=== PATIENT | female | born 1985 | race Caucasian/White ===

== ENCOUNTER 2022-07-09 | Outpatient (REF) | payer OTHER, SELFPAY | END 2022-07-09 00:01 | LOC: HO.HOSX | PROVIDERS: Visit Provider Orthopaedic Surgery | DX: M23.92 Unspecified internal derangement of left knee (principal); Z98.890 Other specified postprocedural states | CPT/HCPCS: 73560; 73565; 99202 ==

== ENCOUNTER 2022-08-13 08:40 | Outpatient (REF) | payer OTHER, SELFPAY ==
--- NOTE | ~2022-08-13 | MR_ITS ---
EXAMINATION: MR KNEE WITHOUT CONTRAST, LEFT CLINICAL INFORMATION: Left knee. Popping, cracking, locking. Lateral pain occasionally. History of three ACL surgeries. COMPARISON: Radiographs dated 07/09/2022. TECHNIQUE: MRI of the knee without contrast was performed using routine sequences on a high-field scanner. FINDINGS: MENISCI: Medial Meniscus: Posterior horn and body are markedly diminutive, most consistent with chronic changes of prior partial meniscectomy. Remaining meniscal tissue at the body is medially extruded from the joint line. No new tears are identified. Lateral Meniscus: The meniscal body is partially extruded from the joint line. Significant intermediate intrasubstance signal intensity and fraying along the inner margin of the meniscal body may correspond to meniscal degeneration or chronic changes of a prior repair. The posterior horn is diminutive with a chronic tear of the posterior root at the tibial attachment and absence of meniscal tissue in this region. The posterior horn remains attached to the ligament of Blackwell. LIGAMENTS: Cruciate: The ACL graft is thinned with posteromedial bowing due to mass effect by the osteophytes along the medial margin of the lateral femoral condyle at the intercondylar notch, most consistent with graft impingement, partial tearing, and laxity. No significant cystic changes at the femoral and intercondylar notches. PCL is intact. Collateral: The MCL is thickened and irregular proximally with edema signal along the deep margin. LCL complex is normal. EXTENSOR MECHANISM: The medial margin of the proximal patellar tendon is thickened, likely the result of postoperative scarring. Adjacent scar tissue is present in Hoffa's fat pad. Quadriceps tendon is normal. ARTICULAR CARTILAGE/BONE: Patellofemoral Compartment: Minimal chondral thinning along the inferior margin of the medial patellar facet with small marginal osteophytes. There is significant articular cartilage loss at the medial margin of the medial trochlear facet with cortical irregularity full-thickness fissures, and marginal osteophytes. Normal trochlear morphology. Medial Compartment: Areas of partial-thickness cartilage loss are evident in the medial femoral condyle both at the anterior margin of the anterior weightbearing surface and at the posterior weightbearing surface. There is associated cortical irregularity and foci of subchondral edema. Small marginal osteophytes. Mild chondral thinning along the posterior margin of the medial tibial plateau. Lateral Compartment: There is focal cartilage loss along the lateral tibial spine. At the posterior weightbearing surface of the lateral femoral condyle, there is a 1.5 x 0.6 cm area of high-grade cartilage with an associated central osteophyte. An adjacent full-thickness chondral defect at the posterior margin of the lateral tibial plateau measures 1 x 0.7 cm with underlying subchondral edema signal and cortical irregularity. Moderate-sized marginal osteophytes. JOINT FLUID AND BURSAE: Moderate-sized joint effusion. No Conley's cyst. An 8 x 6 x 4 mm loose body is evident in the anterior recess of the lateral compartment. A cluster of small loose bodies is noted in the posterior recess of the medial compartment measuring 9 x 6 x 7 mm in aggregate. MR/MR knee LT wo con IMPRESSION: 1. Prior partial medial meniscectomy with extrusion of the residual meniscal tissue at the meniscal body. No new tears. 2. Chronic tear of the posterior root of the lateral meniscus with partial extrusion of the meniscal body. 3. Chronic partial tear of the ACL graft with graft impingement and laxity. 4. [id number]-xf-[id number] tricompartmental osteoarthritis, most pronounced in the lateral compartment. 5. Moderate-sized joint effusion with multiple small loose bodies.
== END 2022-08-13 08:41 | disposition home or self-care (01) ==
LOC: HO.MRI 08:40
PROVIDERS: Visit Provider Orthopaedic Surgery
DX: M23.90 Unspecified internal derangement of unspecified knee (principal); Z98.890 Other specified postprocedural states
CPT/HCPCS: 73721

== ENCOUNTER → 2022-09-06 10:17 | Outpatient (BNVA) | payer OTHER, SELFPAY | PROVIDERS: Visit Provider Orthopaedic Surgery | DX: M23.92 Unspecified internal derangement of left knee (principal) | CPT/HCPCS: 99212 ==

== ENCOUNTER 2023-04-19 10:21 | Outpatient (AMB) | payer OTHER, SELFPAY ==
--- NOTE | 2023-04-19 10:50 | A.OFFVIS_ITS ---
Intake Intake Visit Reasons: OV-Left knee pain/Injection interested? Intake Note: Alicia is a 37 year old female who presents today for a follow up of her left knee pain, hx of left knee ACL repair @ [facility]. Patient reports that she is having significant pain anf is taking tylenol and ibuprofen very often. She is looking to take the next step whether that be surgery, injections or pain mgmt. Allergies latex Allergy (Mild, Verified 09/06/22 10:19) Swelling red dye Allergy (Mild, Verified 09/06/22 10:19) Unknown Penicillins Allergy (Unknown, Verified 09/06/22 10:19) Unknown HPI OV-Left knee pain/Injection interested? HPI Details Alicia is a 37 year old woman who returns for a follow-up of her left knee pain & locking. She has a Hx of 3 previous surgeries to her left knee at [facility], including an ACL reconstruction, and cartilage repair. She continues to have pain with daily activity, worse with walking, along with locking primarily when fully extended, and a painful popping sensation that occurs daily. Most of her pain is with activity, and very mild when at rest. She says her pain has become worse and is no longer tolerable with Tylenol or Ibuprofen. She would like to discuss next steps. 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 [facility] Medical History Locking of left knee Surgical History (Updated 09/06/22 @ 10:22 by Lien Palma CMA) S/P left knee arthroscopy (~2009) Social History (Updated 09/06/22 @ 10:21 by Lien Palma CMA) Current occupational status: employed Current occupation: [employer] Review of Systems Const All systems reviewed & are unremarkable except as noted in HPI and below Physical Exam Const General: no acute distress and alert Orientation/consciousness: patient oriented x3 HEENT Head: Yes normocephalic and Yes atraumatic Eyes EOM: EOMs intact bilaterally Resp Effort & Inspection: normal respiratory effort and able to speak in complete sentences Cardio Jugular venous distension: no JVD Skin General skin exam: turgor normal Rashes: no rashes Neuro General: patient oriented x3 Extrem Other: Left Knee: + Lachmann's - Quintin's 1 + valgus instability Psych Appearance: grossly normal Affect: normal affect Attitude: cooperative Office Procedures Joint Injection/Drain Joint Injection/Drain Details: Injected 1 mL of Decadron and 3 mL 1% lidocaine and 3 mL of 0.25% Marcaine. Site was prepped using aseptic technique. Patient tolerated the procedure well. Primary Site: left knee Approach Used: anterolateral Coding 64951 - Large joint Procedure code (CPT) selection complete Results Reviewed Results Reviewed: 04/19/23 11:15 BUPivacaine MPF 0.25 % [Sensorcaine-MPF 0.25% 10 ML] 10 ml .ROUTE .STK-MED ONE Lidocaine HCl 2 % MPF [Xylocaine 2 % MPF] 5 ml .ROUTE .STK-MED ONE dexAMETHasone sod phosphate [Decadron] 4 mg .ROUTE .STK-MED ONE I personally reviewed relevant MR images 1. Prior partial medial meniscectomy with extrusion of the residual meniscal tissue at the meniscal body. No new tears. ? 2. Chronic tear of the posterior root of the lateral meniscus with partial extrusion of the meniscal body. ? 3. Chronic partial tear of the ACL graft with graft impingement and laxity. ? 4. Ftfi-oj-brvhomhp tricompartmental osteoarthritis, most pronounced in the lateral compartment. ? 5. Moderate-sized joint effusion with multiple small loose bodies. Assessment & Plan Assessment & Plan (1) History of repair of anterior cruciate ligament of left knee: Code(s): Z98.890 - Other specified postprocedural states Plan: This is a 37 year old woman with ~5 months left knee pain and locking, with a a Hx of left knee ACL reconstruction many years ago. She has pain with daily activity, and describes a painful popping sensation in her knee. She says this happens daily and prevents her from ambulating without pain. Her symptoms have worsened and are no longer managed by Tylenol or Ibuprofen. I discussed her diagnosis and treatment options. In regards to her knee locking...this seems to have decreased. Her primary diagnosis is actually OA and further ACL reconstruction will not be beneficial. I injected her left knee today, which she tolerated well, and ordered a lateral unloading brace for her to wear with activity. She will continue to work on weight management and follow up prn. (2) Locking of left knee: Code(s): M23.92 - Unspecified internal derangement of left knee Plan Scribed for Senthil Donovan MD by James Dietz, medical advisor, on 04/19/23 at 11:20 AM, EST. Coding Level of Care Code Est Pt Level 4 (48125) Diagnoses History of repair of anterior cruciate ligament of left knee Z98.890 Locking of left knee M23.92 CPT Codes Coding - 96656 Large joint: 85694 - Large joint ([id number])
== END 2023-04-19 11:39 | disposition home or self-care (01) ==
PROVIDERS: Visit Provider Orthopaedic Surgery
DX: M23.92 Unspecified internal derangement of left knee (principal)
CPT/HCPCS: 20610; 99214

== ENCOUNTER → 2023-04-19 10:21 | Outpatient (BNVA) | payer OTHER, SELFPAY | PROVIDERS: Visit Provider Orthopaedic Surgery | DX: M23.92 Unspecified internal derangement of left knee (principal); Z98.890 Other specified postprocedural states | CPT/HCPCS: 20610; 99212; J1100 ==

== ENCOUNTER 2023-10-31 13:40 | Outpatient (AMB) | payer OTHER, SELFPAY ==
--- NOTE | 2023-10-31 14:04 | MHC.OFFVIS ---
Intake Vital Signs 10/31/23 14:06 Height 5 ft Weight 240 lb BMI 46.9 Intake Visit Reasons: OV-Left knee OA -last injection 04/19/23 Intake Note: Alicia is a 37 year old female who presents today for a follow up of her left knee OA, hx of left knee ACL repair @ [facility]. At her last visit she received an injection in the left knee, and a lateral unloading brace was ordered. Patient reports that she did get brace, but she needs to contact Darius with [facility] for help with her brace. She would like to repeat an injection today Allergies latex Allergy (Mild, Verified 09/06/22 10:19) Swelling red dye Allergy (Mild, Verified 09/06/22 10:19) Unknown Penicillins Allergy (Unknown, Verified 09/06/22 10:19) Unknown HPI OV-Left knee OA -last injection 04/19/23 HPI Details Alicia is a 37 year old female who presents today for a follow up of her left knee OA, hx of left knee ACL repair @ [facility]. At her last visit she received an injection in the left knee, and a lateral unloading brace was ordered. Patient reports that she did get brace, but she needs to contact Darius with [facility] for help with her brace. She would like to repeat an injection today [facility] Medical History Locking of left knee Surgical History (Updated 09/06/22 @ 10:22 by Lien Palma CMA) S/P left knee arthroscopy (~2009) Social History (Updated 09/06/22 @ 10:21 by Lien Palma CMA) Current occupational status: employed Current occupation: [employer] Physical Exam Vital Signs: BMI result Body Mass Index 46.9 Extrem Other: media compartment and retropatellar ttp left knee no effusion Office Procedures Joint Injection/Drain Joint Injection/Drain Details: Injected 1 mL of Decadron and 3 mL 1% lidocaine and 3 mL of 0.25% Marcaine. Site was prepped using aseptic technique. Patient tolerated the procedure well. Primary Site: left knee Approach Used: anterolateral Coding 01206 - Large joint Procedure code (CPT) selection complete Assessment & Plan Assessment & Plan (1) History of repair of anterior cruciate ligament of left knee: Code(s): Z98.890 - Other specified postprocedural states Plan: Unloading brace has been helpful Injected left knee HEP and activity as tolerated Coding Level of Care Code Est Pt Level 3 (23753) Diagnoses History of repair of anterior cruciate ligament of left knee Z98.890 CPT Codes Coding - Large joint: 10415 - Large joint ([id number])
[2023-10-31 14:06] VITALS: BMI 46.9
== END 2023-10-31 14:42 | disposition home or self-care (01) ==
PROVIDERS: Visit Provider Orthopaedic Surgery
DX: M17.12 Unilateral primary osteoarthritis, left knee (principal)
CPT/HCPCS: 20610; 99213

== ENCOUNTER → 2023-10-31 13:40 | Outpatient (BNVA) | payer OTHER, SELFPAY | PROVIDERS: Visit Provider Orthopaedic Surgery | DX: M17.12 Unilateral primary osteoarthritis, left knee (principal); Z98.890 Other specified postprocedural states | CPT/HCPCS: 20610; 99212; J0665; J1100 ==

== ENCOUNTER 2024-08-06 10:56 | Outpatient (AMB) | payer OTHER, SELFPAY ==
--- NOTE | 2024-08-06 11:05 | MHC.OFFVIS ---
Intake Visit Reasons: OV- Left Knee OA -last inj 10/31/23 Intake Note: Demetrio is a 39 year old female who presents today for a follow up of her left knee OA. She has pain with daily activity, and describes a painful popping sensation in her knee. She says this happens daily and prevents her from ambulating without pain. Last injection administered 10/31/2023, which was helpful and she would like to repeat injection today. She also mentions that she has been having increasing pain in the right knee that she believes is from over compensation. Lateral Unloading brace ordered in 2022 Hx of Left ACL Reconstruction @ [facility] Allergies latex Allergy (Mild, Verified 09/06/22 10:19) Swelling red dye Allergy (Mild, Verified 09/06/22 10:19) Unknown Penicillins Allergy (Unknown, Verified 09/06/22 10:19) Unknown HPI HPI OV- Left Knee OA -last inj 10/31/23: Details: Demetrio is a 39 year old female who presents today for a follow up of her left knee OA. She has pain with daily activity, and describes a painful popping sensation in her knee. She says this happens daily and prevents her from ambulating without pain. Last injection administered 10/31/2023, which was helpful and she would like to repeat injection today. She also mentions that she has been having increasing pain in the right knee that she believes is from over compensation. Lateral Unloading brace ordered in 2022 Hx of Left ACL Reconstruction @ [facility] Medical History (Updated 08/06/24 @ 11:42 by Senthil Donovan MD) Locking of left knee Surgical History (Updated 09/06/22 @ 10:22 by Lien Palma CMA) S/P left knee arthroscopy (~2009) Social History (Updated 09/06/22 @ 10:21 by Lien Palma CMA) Current occupational status: employed Current occupation: [employer] Physical Exam Extrem Other: Tenderness to palpation medial compartment bilateral knees. Office Procedures Joint Inj/Aspir; Non-Pain Clin Joint Injection/Drain Details: Injected 1 mL of Decadron and 3 mL 1% lidocaine and 3 mL of 0.25% Marcaine. Site was prepped using aseptic technique. Patient tolerated the procedure well. Shoulders, Hips, Knees, Knee Large Joint Injection : Bilateral Knee Coding Procedure code (CPT) selection complete Results Reviewed Results Reviewed: I personally reviewed relevant radiographs. Bilateral knee osteoarthritis moderate on the left and mild on the right. Assessment & Plan Assessment & Plan (1) Arthritis of both knees: Code(s): M17.0 - Bilateral primary osteoarthritis of knee Category: Medical Plan: Bilateral knee OA. Left greater than right. Injected both knees. Continue activity as tolerated. Coding Level of Care Code Est Pt Level 3 (51318) Diagnoses Arthritis of both knees M17.0 CPT Codes Shoulders, Hips, Knees, - Knee Large Joint Injection : Bilateral Knee ([id number])
== END 2024-08-06 13:09 | disposition home or self-care (01) ==
PROVIDERS: Visit Provider Orthopaedic Surgery
DX: M17.0 Bilateral primary osteoarthritis of knee (principal)
CPT/HCPCS: 20610; 99213

== ENCOUNTER → 2024-08-06 10:56 | Outpatient (BNVA) | payer OTHER, SELFPAY | PROVIDERS: Visit Provider Orthopaedic Surgery | DX: M17.0 Bilateral primary osteoarthritis of knee (principal) | CPT/HCPCS: 20610; 99212; J0665; J1100; J2003 ==